=== PATIENT | male | born 1980 | race Caucasian/White ===

== ENCOUNTER → 2016-11-10 | Day surgery (SDC) | payer OTHER ==
[~2016-11-10] VITALS: Ht 175.3 cm; Wt 75.7 kg
--- NOTE | 2016-11-10 10:50 | Operative Report ---
Operative/Inv Procedure Report Surgery Date: 11/10/16 Name of Procedure: Nasal septoplasty Endoscopic left meatoplasty with removal of tissue Pre-Operative Diagnosis: Nasal obstruction secondary to nasal septal deviation Chronic left maxillary sinusitis with left facial pain Post-Operative Diagnosis: Same Estimated Blood Loss: less than 50ml Surgeon/Viscera Washer: ANUPAMA BAKER MD Anesthesia: general endotracheal tube Implants: None Specimens: Nasal septal bone and cartilage Left maxillary sinus tissue Complications: None Condition: good Operative Indication: This patient presents with a history of chronic left nasal obstruction and left facial pain he had undergone a previous nasal septoplasty and balloon sinus plasty approximately 2 years ago however his symptoms have persisted A recent CAT scan of the nose and sinuses revealed nasal septal deviation to the left and a small cystic lesion in the inferior aspect of the left maxillary sinus Operative/Procedure Note Note: With the patient in supine position, a timeout was performed to confirm the correct patient and procedure area Gen. anesthesia was then induced and orotracheal tube. The head and body were draped with sterile towels and sheets. The nose was topically treated with topical cocaine solution on neurosurgical patties and Xylocaine 1% with 100,000 epinephrine was used to inject the septum in the perinasal area. Using a columella retractor, alar protector and #15 scalpel blade a left hemitransfixion incision was performed. A left mucoperichondrial mucoperiosteal flap was then elevated and then portions of the deviated septum were incised with the D knife and removed. The remaining septum to be fractured to the midline. The inferior turbinates were outfractured. At this time a 0 telescope was used to examine the intranasal area. The left middle turbinate and uncinate process were injected with the above local anesthetic. A sickle knife was used to perform a left uncinectomy and then a ball-tipped seeker was used to probe the ostia to the maxillary sinus. This was then widened with use of Grunwald forward biting forceps and a backbiting forcep. The sinus was then examined with use of 0, 30, and 70 telescopes. The mucosa appeared otherwise unremarkable option of a small cystic area in the inferior aspect of the sinus. At this time the septal mucosal flaps were coapted with 4-0 chromic suture and a whipstitch fashion and the same suture was used to close the incision. The nose was then packed with Telfa gauze coated with bacitracin ointment and placed on each side of the septum is packing. He tolerated the procedure well and following the procedure was awakened extubated and transferred to recovery in satisfactory condition. He is to be discharged to home with follow-up in 3 days in the office for packing removal. He is discharged with Lortab for pain and Keflex 500 mg 3 times a day Findings: Deviated septum to the left The left maxillary sinus was unremarkable with the exception of a small cystic structure inferiorly. Discharge Disposition: PACU CC: BLANCA RANDHAWA,JOS Jones
== END ==
LOC: STS 03:53
DX: J34.2 Deviated nasal septum (principal); J32.0 Chronic maxillary sinusitis; R51 Headache
CPT/HCPCS: 88304; 88305; C9399; J0131; J2250